=== PATIENT | female | born 1950 | race Caucasian/White ===

== ENCOUNTER → 2016-12-15 | Outpatient (CLI) | payer OTHER | LOC: CT 15:08 | DX: F17.210 Nicotine dependence, cigarettes, uncomplicated (principal); I70.0 Atherosclerosis of aorta | CPT/HCPCS: G0297 ==

== ENCOUNTER → 2021-07-01 | Outpatient (CLI) | payer OTHER | LOC: KOH-I 06-17 14:30 | DX: Z72.0 Tobacco use (principal); J90 Pleural effusion, not elsewhere classified | CPT/HCPCS: 71250 ==